=== PATIENT | female | born 1960 | race Caucasian/White ===

== ENCOUNTER 2017-12-29 13:00 | Emergency (ER) | payer OTHER ==
[~2017-12-29] VITALS: Ht 162.6 cm; Wt 64.4 kg
[2017-12-29 13:40] LABS: ABSOLUTE BASOPHIL COUNT 0.1 /CUMM (0.0-0.2); ABSOLUTE EOSINOPHIL COUNT 0.2 /CUMM (0.0-0.7); ABSOLUTE GRANULOCYTE CT 4.8 /CUMM (1.4-6.5); ABSOLUTE LYMPH COUNT 2.8 /CUMM (1.2-3.4); ABSOLUTE MONOCYTE COUNT 0.3 /CUMM (0.10-0.60); BASOPHIL % 0.7 % (0.0-2.0); GRANULOCYTE % 59.6 % (42.2-75.2); HEMATOCRIT 40.2 % (37-47); MEAN CORPUSCULAR HGB 30.3 PG (27.0-31.0); MEAN CORPUSCULAR HGB CONC 33.6 G/DL (33.0-37.0); MEAN CORPUSCULAR VOLUME 90.3 FL (81.0-99.0); MEAN PLATELET VOLUME 10.1 FL (7.4-10.4); PLATELET COUNT 209 /CUMM (130-400); RBC DISTRIBUTION WIDTH 13.7 % (11.5-14.5); RED BLOOD CELL CT 4.45 /CUMM (4.20-5.40); WHITE BLOOD CELL COUNT 8.1 /CUMM (4.8-10.8)
--- NOTE | 2017-12-29 14:25 | ED GI/GU/ABDOMINAL COMPLAINT ---
History of Present Illness General Chief Complaint: Abdominal Pain/Flank Pain Stated Complaint: ABD PAIN Source: patient Exam Limitations: no limitations Vital Signs & Intake/Output Vital Signs & Intake/Output Vital Signs Date Time Temp Pulse Resp B/P B/P Pulse O2 O2 Flow FiO2 Mean Ox Delivery Rate 12/29 1559 98.0 84 18 134/76 98 Room Air Room Air 12/29 1444 97.8 80 20 142/80 98 Room Air 12/29 1309 98.5 94 16 128/78 97 Room Air ED Intake and Output 12/30 0000 12/29 1200 Intake Total Output Total Balance Patient 142 lb Weight Weight Reported by Patient Measurement Method Allergies Coded Allergies: No Known Allergies (12/29/17) Reconcile Medications Cyclobenzaprine HCl 10 MG TABLET 1 TAB PO TID PRN PAIN Diazepam 2 MG TABLET 0.5 TAB PO 1200 ANXIETY (Reported) Venlafaxine HCl (Venlafaxine HCl ER) 225 MG TAB.ER.24 1 TAB PO DAILY DEPRESSION (Reported) Triage Note: 57 Y/O FEMALE C/O DIFFUSE ABDOMINAL PAIN AND "INDIGESTION", ONSET WEDNESDAY. STATES SYMPTOMS WORSENED ON WEDNESDAY WITH RADIATION TO LLQ, L FLANK AND INTO L GROIN/LEG. PT REPORTS NAUSEA X 2 WEEKS, NO VOMITING. FELT "FEVERISH" YESTERDAY. AFEBRILE IN TRIAGE. DENIES URINARY SYMPTOMS. PT STATES [facility] C[facility] AND HAD URINE DONE. EVAL'D BY LURDES BRISCOE IN TRIAGE Triage Nurses Notes Reviewed? yes LMP (ages 10-50): post menopausal ? n Is pt currently ? No Onset: Abrupt Duration: day(s): (4), changing over time, continues in ED Timing: single episode today Quality/Severity: fullness Severity Numbers: 6 Location: generalized abdomen Radiation: groin, LLQ Activities at Onset: none Prior Abdominal Problems: none Past Sexual History: Unobtainable at this time No Modifying Factors: none Modifying Factors: Worsens With: palpation. Associated Symptoms: abdominal pain, lower back pain, nausea/vomiting HPI: 57-year-old female with a history of depression presents for evaluation of abdominal pain back pain and nausea. Patient reports symptoms started about 4 days ago and have been persistent. She reports generalized abdominal pain she describes as a fullness and cramping. She also reports bilateral lower back pain. The abdominal pain has been waxing and waning and currently is not present. She only reports pain in her lower back at the moment. The pain is located on both sides of lower back worse on the right side. The pain radiates into her right but and right upper leg. It is worse with movement or touching the area. She states that when the abdominal pain is present is located diffusely in her abdomen but seems be a little bit worse in the left lower quadrant and radiates into her groin. She denies urinary symptoms hematuria or vaginal discharge vaginal bleeding fever chest pain shortness of breath numbness tingling bowel or bladder dysfunction. She has no previous history of back problems. She is not taking any medicine for her symptoms. She reports some mild nausea but no vomiting. She is eating and drinking normally but does report intermittent "indigestion". No abdominal surgeries. No lower extremity edema. (Ayush Costello) Past History Travel History Traveled to [place] past 21 day No Medical History Any Pertinent Medical History? see below for history Neurological: NONE EENT: NONE Cardiovascular: NONE Respiratory: NONE Gastrointestinal: NONE Hepatic: NONE Renal: NONE Musculoskeletal: NONE Psychiatric: depression Endocrine: NONE Blood Disorders: NONE Cancer(s): NONE MUTUAL FUNDS AGENT/Reproductive: NONE Surgical History Surgical History: non-contributory Psychosocial History What is your primary language Greek Tobacco Use: Current Daily Use Daily Tobacco Use Amount/Type: => 5 Cigarettes daily Family History Hx Contributory? No (Ayush Cosetllo) Review of Systems Review of Systems Constitutional: Reports: no symptoms. EENTM: Reports: no symptoms. Respiratory: Reports: no symptoms. Cardiovascular: Reports: no symptoms. GI: Reports: see HPI, abdominal pain, nausea. Genitourinary: Reports: no symptoms. Musculoskeletal: Reports: see HPI, back pain. Skin: Reports: no symptoms. Neurological/Psychological: Reports: no symptoms. Hematologic/Endocrine: Reports: no symptoms. Immunologic/Allergic: Reports: no symptoms. All Other Systems: Reviewed and Negative (Ayush Costello) Physical Exam Physical Exam General Appearance: well developed/nourished, no apparent distress, alert, awake Head: atraumatic, normal appearance Eyes: Bilateral: normal appearance, PERRL, EOMI. Ears, Nose, Throat, Mouth: hearing grossly normal, moist mucous membrane Neck: normal inspection, supple, full range of motion Respiratory: normal breath sounds, chest non-tender, no respiratory distress, lungs clear Cardiovascular: regular rate/rhythm, normal peripheral pulses Peripheral Pulses: 2+ radial (R), 2+ radial (L) Gastrointestinal: normal bowel sounds, soft, non-tender, no organomegaly Back: normal inspection, normal range of motion, lumbar paraspinal muscle tender palpation bilaterally. No CVA tenderness. No midline tenderness no step-offs or deformities no bruising swelling or abrasions Extremities: normal range of motion, straight leg raised (positive on right) Neurologic/Psych: no motor/sensory deficits, awake, alert, oriented x 3, normal gait, normal mood/affect Skin: intact, normal color, warm/dry Core Measures ACS in differential dx? No Sepsis Present: No Sepsis Focused Exam Completed? No (Raghav CHATMAN,Ayush) Progress Differential Diagnosis: AAA, AMI, appendicitis, biliary colic, bowel obstruction , cholecystitis, diverticulitis, gastritis, ischemic bowel, inflamm bowel dis, intrauterine , kidney stone, ovarian cyst, ovarian torsion, pancreatitis, peptic ulcer, PUD/GERD, SBO, threatened AB, UTI/pyelo, sciatica, lumbar stenosis, cauda equina, epidural abscess Plan of Care: Orders Procedure Date/time Status URINALYSIS 12/29 1314 Complete TROPONIN LEVEL 12/29 1314 Complete LACTIC ACID 12/29 1314 Complete COMPREHENSIVE METABOLIC PANEL 12/29 1314 Complete CBC WITHOUT DIFFERENTIAL 12/29 1313 Complete EKG 12/29 1314 Active Laboratory Tests 12/29/17 1614: Lactic Acid Cancelled 12/29/17 1338: Urine Color YEL, Urine Clarity CLEAR, Urine pH 6.0, Ur Specific Shock 1.010, Urine Protein NEG, Urine Ketones NEG, Urine Nitrite NEG, Urine Bilirubin NEG, Urine Urobilinogen 0.2, Ur Leukocyte Esterase NEG, Ur Microscopic SEDIMENT EXAMINED, Urine RBC RARE, Ur Epithelial Cells RARE, Urine Hemoglobin TRACE- INTACT, Urine Glucose NEG 12/29/17 1327: Anion Gap 8, Estimated GFR > 60, BUN/Creatinine Ratio 32.9 H, Glucose 98, Lactic Acid 0.6 L, Calcium 9.1, Total Bilirubin 0.2, AST 18, ALT 27, Alkaline Phosphatase 65, Troponin I < 0.01, Total Protein 6.7, Albumin 3.9, Globulin 2.8, Albumin/Globulin Ratio 1.4, CBC w Diff NO MAN DIFF REQ, RBC 4.45, MCV 90.3, MCH 30.3, MCHC 33.6, RDW 13.7, MPV 10.1, Gran % 59.6, Lymphocytes % 34.4, Monocytes % 3.3, Eosinophils % 2.0, Basophils % 0.7, Absolute Granulocytes 4.8, Absolute Lymphocytes 2.8, Absolute Monocytes 0.3, Absolute Eosinophils 0.2, Absolute Basophils 0.1 Patient is here with lower back and abdominal pain. The lower back pain is worse in the right side and radiates into the right buttock and right upper leg. Straight leg raise is positive on the right. Pain is worse with movement. Her abdominal pain is intermittent and currently not present. Her abdomen is soft and nontender. Patient is not taking any medicine for the pain she declines any pain medicine here. Labs EKG chest x-ray ordered. Blood work is not showing any abnormal findings. EKG no acute changes chest x- ray and CT scan are negative. Suspect this may be musculoskeletal back pain. She does have a positive straight leg raise on the right which may indicate sciatic nerve problems. Her abdomen currently is soft and nontender. On reevaluation her abdomen is still benign. She denies any abdominal symptoms. She has no chest pain or shortness of breath. Troponin is negative. She does not have significant cardiac risk factors. Patient will be treated for muscle skeletal back pain. Advised to continue Tylenol and ibuprofen. Cyclobenzaprine as needed. Follow-up with the primary care doctor for further evaluation. Advised she may need MRI if her symptoms persist. Discussed return precautions patient agrees the plan Diagnostic Imaging: Viewed by Me: Radiology Read, CT Scan. Discussed w/RAD: Radiology Read, CT Scan. Radiology Impression: PATIENT: ANNE PENNINGTON PRESENT AGE: 57 PATIENT ACCOUNT NO: [id number] : 58 LOCATION: [facility] ORDERING PHYSICIAN: Hasmukh CHATMAN SERVICE DATE: 12/29/17 EXAM TYPE: RAD - XRY-CHEST XRAY, TWO VIEWS EXAMINATION: XR CHEST CLINICAL INFORMATION: Shortness of breath and chest pain. COMPARISON: None. TECHNIQUE: Frontal and lateral views of the chest were obtained. FINDINGS: The lung jean are well expanded and appear clear bilaterally. The cardiac silhouette is normal. There are no pleural effusions or pneumothorax. The central pulmonary vasculature is normal. The hilar regions appear normal. There are no acute osseous findings. IMPRESSION: 1. There are no acute cardiopulmonary findings. DICTATED BY: Jarod Funk MD DATE/ TIME DICTATED:12/29/171432 ENGINEERING DIRECTOR:YARELI DATE/TIME TRANSCRIBED: 12/29/171432 CONFIDENTIAL, DO NOT COPY WITHOUT APPROPRIATE AUTHORIZATION., PATIENT: ANNE PENNINGTON PRESENT AGE: 57 PATIENT ACCOUNT NO: [id number] : 58 LOCATION: [facility] ORDERING PHYSICIAN: Hasmukh CHATMAN SERVICE DATE: 12/29/17 EXAM TYPE: CAT - CT ABD & PELVIS W IV CONTRAST EXAMINATION: CT ABDOMEN AND PELVIS WITH CONTRAST CLINICAL INFORMATION: Abdominal pain. Nausea. COMPARISON: None TECHNIQUE: Multidetector volumetric imaging was performed of the abdomen and pelvis following IV administration of 95 mL of Optiray 320 intravenous contrast. Sagittal and coronal reformatted images were obtained on the technologist's workstation. DLP: 260.71 mGy-cm FINDINGS: LUNG BASES: The visualized lung bases are unremarkable. LIVER, GALLBLADDER, AND BILIARY TREE: The liver is normal in size, shape, and attenuation. No focal hepatic lesion or biliary ductal dilatation is present. The gallbladder is unremarkable with no evidence of radiopaque gallstones, gallbladder wall thickening, or obvious pericholecystic inflammatory changes. PANCREAS: Unremarkable. SPLEEN: Unremarkable. ADRENAL GLANDS: Unremarkable. KIDNEYS AND URETERS: The kidneys are normal in size, shape, and attenuation. No hydronephrosis, hydroureter, or calculi seen. No perinephric stranding. BLADDER: Unremarkable. GASTROINTESTINAL TRACT: There are scattered diverticula left colon and sigmoid. There is no acute abnormality. No diverticulitis. No bowel wall thickening or edema. Moderate volume of stool in the colon. The appendix is normal. The small bowel loops are unremarkable. ABDOMINAL WALL: No significant hernia is appreciated. LYMPH NODES: Normal. VASCULAR: Atherosclerotic vascular wall calcifications of aorta. There is no aneurysm of the aorta. PELVIC VISCERA: Uterus is anteverted. There is a coarse calcification in the right adnexa measuring 2 cm. This could be related to the ovary. There are additional multiple small calcifications in the pelvis that are likely phleboliths. OSSEOUS STRUCTURES: Multilevel degenerative spondylosis spine with disc height narrowing and facet joint arthrosis of lumbar spine. IMPRESSION: There is no acute abnormality of the abdomen or the pelvis. DICTATED BY: Luisito Rosales MD DATE/TIME DICTATED:12/29/171509 ENGINEERING DIRECTOR:YARELI DATE/TIME TRANSCRIBED:1509 CONFIDENTIAL, DO NOT COPY WITHOUT APPROPRIATE AUTHORIZATION. < Electronically signed in Other Vendor System> SIGNED BY: Luisito Rosales MD 1522 Initial ED EKG: normal sinus rhythm, LEFT ATRIAL ABN (Raghav CHATMAN,Ayush) Departure Departure Disposition: HOME OR SELF CARE Condition: Stable Clinical Impression Primary Impression: Abdominal pain Qualifiers: Abdominal location: generalized Qualified Code: R10.84 - Generalized abdominal pain Secondary Impressions: Sciatica Qualifiers: Laterality: unspecified laterality Qualified Code: M54.30 - Sciatica, unspecified side Referrals: Jess Aguirre MD (PCP/Family) Additional Instructions: Rest, avoid heavy lifting bending or excessive physical activity. Avoid greasy fatty spicy foods. Tylenol 1000Mg every 6 hours as needed for pain. Prilosec once daily. Cyclobenzaprine is a muscle relaxer that can be used every 8 hours as needed. Make a follow-up with her primary care doctor on Wednesday as scheduled. Monitor symptoms closely return with any concerns. Please go over all results of today's visit with your primary care doctor. Contact your primary care doctor to let them know you were here in the emergency room. There may be nonspecific findings which may not be related to your visit today here in the emergency room but may require further evaluation and chronic monitoring by your primary care doctor. If you had a laceration today the chance of foreign body always remains. You should follow-up with your primary care doctor for recheck in 3-5 days for a wound check. If you had an x-ray done there is a chance that a fracture could have been missed on initial read and you should follow-up with your primary care doctor for repeat x-rays if symptoms persist. If your blood pressure was elevated here in the emergency room please have rechecked by her primary care doctor within the next 48 hours by your primary care doctor. If you were prescribed a narcotic here in the emergency room or any type of controlled substances you're not allowed to drive while taking this medication or operate any type of heavy machinery. Narcotics can make you feel lightheaded dizziness nausea and can cause constipation. You may need to machine operator picker a stool softener. Thank you for choosing [facility] emergency room. Please return to the emergency room immediately if you have any other concerns worsening of symptoms. Departure Forms: Customer Survey General Discharge Information Prescriptions: Current Visit Scripts Cyclobenzaprine HCl 1 TAB PO TID PRN PAIN #30 TAB (Ayush Costello) PA/[employer] Co-Sign Statement Statement: ED Attending supervision documentation- [] I saw and evaluated the patient. I have also reviewed all the pertinent lab results and diagnostic results. I agree with the findings and the plan of care as documented in the PA's/[employer] T[employer] M[employer]'s documentation. [x] I have reviewed the ED Record and agree with the PA's/[employer] M[employer]'s documentation. [] Additions or exceptions (if any) to the PAs/F[employer]ER[employer] T[employer] M[employer]'s note and plan are summarized below: [] (Rafael Linares DO)
--- NOTE | 2017-12-29 14:37 | RADIOLOGY REPORT ---
EXAMINATION: XR CHEST CLINICAL INFORMATION: Shortness of breath and chest pain. COMPARISON: None. TECHNIQUE: Frontal and lateral views of the chest were obtained. FINDINGS: The lung jean are well expanded and appear clear bilaterally. The cardiac silhouette is normal. There are no pleural effusions or pneumothorax. The central pulmonary vasculature is normal. The hilar regions appear normal. There are no acute osseous findings. IMPRESSION: 1. There are no acute cardiopulmonary findings.
[2017-12-29] MEDS ORDERED: VENLAFAXINE HC225 MG PO (14:47)
[2017-12-29] MEDS ORDERED: DIAZEPAM2 M1 PO (14:48)
--- NOTE | 2017-12-29 15:22 | CT SCAN REPORT ---
EXAMINATION: CT ABDOMEN AND PELVIS WITH CONTRAST CLINICAL INFORMATION: Abdominal pain. Nausea. COMPARISON: None TECHNIQUE: Multidetector volumetric imaging was performed of the abdomen and pelvis following IV administration of 95 mL of Optiray 320 intravenous contrast. Sagittal and coronal reformatted images were obtained on the technologist's workstation. DLP: 260.71 mGy-cm FINDINGS: LUNG BASES: The visualized lung bases are unremarkable. LIVER, GALLBLADDER, AND BILIARY TREE: The liver is normal in size, shape, and attenuation. No focal hepatic lesion or biliary ductal dilatation is present. The gallbladder is unremarkable with no evidence of radiopaque gallstones, gallbladder wall thickening, or obvious pericholecystic inflammatory changes. PANCREAS: Unremarkable. SPLEEN: Unremarkable. ADRENAL GLANDS: Unremarkable. KIDNEYS AND URETERS: The kidneys are normal in size, shape, and attenuation. No hydronephrosis, hydroureter, or calculi seen. No perinephric stranding. BLADDER: Unremarkable. GASTROINTESTINAL TRACT: There are scattered diverticula left colon and sigmoid. There is no acute abnormality. No diverticulitis. No bowel wall thickening or edema. Moderate volume of stool in the colon. The appendix is normal. The small bowel loops are unremarkable. ABDOMINAL WALL: No significant hernia is appreciated. LYMPH NODES: Normal. VASCULAR: Atherosclerotic vascular wall calcifications of aorta. There is no aneurysm of the aorta. PELVIC VISCERA: Uterus is anteverted. There is a coarse calcification in the right adnexa measuring 2 cm. This could be related to the ovary. There are additional multiple small calcifications in the pelvis that are likely phleboliths. OSSEOUS STRUCTURES: Multilevel degenerative spondylosis spine with disc height narrowing and facet joint arthrosis of lumbar spine. IMPRESSION: There is no acute abnormality of the abdomen or the pelvis.
[2017-12-29] MEDS ORDERED: CYCLOBENZAPRINE10 M1 PO (15:53)
[2017-12-29 15:59] VITALS: BP 134/76
== END 2017-12-29 16:00 ==
LOC: ERH 13:00
PROVIDERS: Physician Assistant Medical
DX: M54.41 Lumbago with sciatica, right side (principal); R10.84 Generalized abdominal pain
CPT/HCPCS: 71046; 74177; 81001; 93005; 93010